=== PATIENT | male | born 1945 | race Caucasian/White ===

== ENCOUNTER → 2021-03-07 | Outpatient (CLI) | payer MEDICARE, BC ==
--- NOTE | 2021-03-02 09:07 | NUR ---
LMOM WITH INSTRUCTIONS TO WEAR COMFORTABLE CLOTHEING WITHOUT METAL. TO REMOVE METAL, SUCH BELT,JEANS, WALLET. LEFT CALL BACK NUMBER
[~2021-03-07] MED LIST: ALPHA LIPOIC A200 M2 PO; COMPLETE SENIOR1 TA1 PO; GARLIC100 MG PO; PROAIR HFA0.09 MG/AC IH; VITAMIN D32000 I1 PO
== END ==
LOC: COL.RAD 08:15
DX: M51.36 Other intervertebral disc degeneration, lumbar region (principal); M48.061 Spinal stenosis, lumbar region without neurogenic claudication; M43.06 Spondylolysis, lumbar region; M47.816 Spondylosis without myelopathy or radiculopathy, lumbar region; M51.26 Other intervertebral disc displacement, lumbar region